=== PATIENT | female | born 1965 | race Caucasian/White ===

== ENCOUNTER → 2023-11-01 | Outpatient (CLI) | payer OTHER ==
--- NOTE | 2023-11-01 08:04 | CTL ---
EXAMINATION TYPE: CT Low Dose Lung DATE OF EXAM ORDERED: 11/01/2023 HISTORY: Long-term tobacco use. Lung cancer screening CT DLP: 102.[address] CTDI: 3.0 mGy Automated exposure control for dose reduction was used. SCREENING VISIT: Baseline COMPARISON: None TECHNIQUE: Low dose computed tomography scan was performed through the chest at 1 mm thick sections a nd reconstructed images in multiple planes at 1 mm and [address] DIAGNOSTIC QUALITY: Satisfactory FINDINGS: LUNG NODULES: Present, detailed below: Incidental 2 to 3 mm calcified nodule or benign granuloma left upper lobe axial image 87. No greater than 5 mm noncalcified pulmonary nodules. LUNGS: COPD: Severity: Mild Fibrosis: Severity: None Lymph nodes: None Other findings: Incidental 1.8 cm thin-walled cyst in the periphery of the left lower lobe axial imag e 170 RIGHT PLEURAL SPACE: Effusion: None Calcification: None Thickening: None Pneumothorax: None LEFT PLEURAL SPACE: Effusion: None Calcification: None Thickening: None Pneumothorax: None HEART: Heart Size: Normal Coronary Calcification: Moderate to severe three-vessel Pericardial Effusion: None OTHER FINDINGS: Upper abdomen: None Bony thorax: None Supraclavicular region: None Other: Incidental Medial calcifications in both breasts noted axial image 31 IMPRESSION: No significant greater than 5 [address] nodules. CT LUNG RAD AND CT CHEST RECOMMENDATION: Lung-Rad 2 Benign Appearance or Behavior: Continue annual sc reening with LDCT in 12 months. S Modifier (other clinically significant findings): None
== END | disposition home or self-care (01) ==
LOC: RADCTMAIN 06:07
PROVIDERS: ATTEND Family Medicine
DX: Z12.2 Encounter for screening for malignant neoplasm of respiratory organs (principal); F17.210 Nicotine dependence, cigarettes, uncomplicated
CPT/HCPCS: 71271

== ENCOUNTER → 2024-09-09 | Outpatient (CLI) | payer BC ==
--- NOTE | 2024-09-10 11:39 | CA ---
Transthoracic Echo Report Name: Ana Cao Age: 59 Gender: F : 1965 Exam Date: 09/09/2024 16:08 Exam Location: [facility] Ht (in): 60 Wt (lb): 156 Ordering Physician: Marcus Sequeira DO Attending/Referring Phys: Karrie Stout REPLACED BY [facility] [employer] Olga Call RDCS Procedure CPT: Indications: I25.84 CORONARY ATHEROSCLEROSIS Cardiac Hx: Technical Quality: Fair Contrast 1: Total Dose (mL): Contrast 2: Total Dose (mL): MEASUREMENTS (Male / Female) Normal Values 2D ECHO LV Diastolic Diameter PLAX 3.1 cm 4.2 - 5.9 / 3.9 - 5.3 cm LV Systolic Diameter PLAX 1.7 cm IVS Diastolic Thickness 1.8 cm 0.6 - 1.0 / 0.6 - 0.9 cm LVPW Diastolic Thickness 1.3 cm 0.6 - 1.0 / 0.6 - 0.9 cm LV Relative Wall Thickness 1.0 LA Volume 24.7 cm??? 18 - 58 / 22 - 52 cm??? LA Volume Index 14.0 cm???/m??? 16 - 28 cm???/m??? M-MODE Aortic Root Diameter MM 2.9 cm LA Systolic Diameter MM 3.2 cm LA Ao Ratio MM 1.1 AV Cusp Separation MM 2.0 cm DOPPLER AV Peak Velocity 162.5 cm/s AV Peak Gradient 10.6 mmHg AV Mean Velocity 122.1 cm/s AV Mean Gradient 6.3 mmHg AV Velocity Time Integral 33.9 cm LVOT Peak Velocity 135.4 cm/s LVOT Peak Gradient 7.3 mmHg LVOT Velocity Time Integral 28.5 cm MV Area PHT 3.7 cm??? Mitral E Point Velocity 51.0 cm/s Mitral A Point Velocity 93.8 cm/s Mitral E to A Ratio 0.5 MV Deceleration Time 207.6 ms MV E' Velocity 5.4 cm/s Mitral E to MV E' Ratio 9.5 FINDINGS Left Ventricle Moderately increased left ventricular wall thickness. Left ventricular cavity size normal. No obvious regional wall motion abnormalities. Grade 1 diastolic dysfunction. Left ventricular ejection fraction is estimated at 55-60 %. Right Ventricle Normal right ventricular size and function. Right ventricular systolic pressure within normal limits. Right Atrium Normal right atrial size. Left Atrium Normal left atrial size. Mitral Valve Structurally normal mitral valve. No mitral stenosis, regurgitation or prolapse. Aortic Valve Trileaflet aortic valve. No aortic stenosis. No aortic regurgitation. Tricuspid Valve Structurally normal tricuspid valve. Mild tricuspid regurgitation. Pulmonic Valve Structurally normal pulmonic valve. Pericardium No pericardial effusion. Aorta Normal size aortic root and proximal ascending aorta. CONCLUSIONS Left ventricular ejection fraction 55-60% Moderately increased left ventricular wall thickness RVSP normal Tricuspid regurgitation Previewed by: Dr. Claus Muñoz DO (Electronically Signed) Final Date: 10 September 2024 11:39
== END | disposition home or self-care (01) ==
LOC: RADECHMAIN 15:54
PROVIDERS: ATTEND Family Medicine
DX: I07.1 Rheumatic tricuspid insufficiency (principal)
CPT/HCPCS: 93306